=== PATIENT | male | born 1945 | race Caucasian/White ===

== ENCOUNTER 2019-10-21 22:14 | Inpatient (IN) ==
[2019-10-21] MEDS ORDERED: ZOFRAN INJ 4 MG VIAL IVP ONE (23:00)
[2019-10-21] MEDS ORDERED: MORPHINE SULFATE INJ 2 MG INJ ONE (23:00)
[2019-10-21] MEDS ORDERED: MORPHINE SULFATE INJ 2 MG INJ IVP ONE (23:00)
[2019-10-21] MEDS ORDERED: ZOFRAN INJ 4 MG VIAL ONE (23:00)
[2019-10-21 23:01] LABS: BASOPHILS % (AUTO) 0.3 % (0.2-1.0); EOSINOPHILS % (AUTO) 0.2 % (0.9-2.9); HEMATOCRIT 52.7 % (42.0-54.0); HEMOGLOBIN 17.7 g/dL (13.5-18.0); LYMPHOCYTES # (AUTO) 1.3 X10^3/uL (1.3-2.9); MEAN CORPUSCULAR HEMOGLOBIN 30.4 pg (27.0-34.0); MEAN CORPUSCULAR HGB CONC 33.5 g/dL (33.0-35.0); MEAN CORPUSCULAR VOLUME 90.9 fL (80.0-100.0); MEAN PLATELET VOLUME 9.6 fL (7.4-11.0); MONOCYTES # (AUTO) 0.6 x10^3/uL (0.3-0.8); MONOCYTES % (AUTO) 4.3 % (0.0-13.0); NEUTROPHILS # (AUTO) 12.2 x10^3/uL (2.2-4.8); NEUTROPHILS % (AUTO) 86.2 % (42.0-75.0); PLATELET COUNT 178 X10^3/uL (150.0-450.0); RED CELL DISTRIBUTION WIDTH 15.6 % (11.6-16.5); WHITE BLOOD COUNT 14.1 X10^3/uL (3.6-10.0)
[2019-10-21 23:15] LABS: ALANINE AMINOTRANSFERASE 38 Units/L (12-78); ALBUMIN 4.3 g/dL (3.4-5.0); ALKALINE PHOSPHATASE 60 Units/L (46-116); ASPARTATE AMINO TRANSFERASE 23 Units/L (15-37); BLOOD UREA NITROGEN 20 mg/dL (7-18); CALCIUM 9.4 mg/dL (8.5-10.1); CARBON DIOXIDE 28.8 mmol/L (21-32); CHLORIDE 101 mmol/L (98-107); COR NA(FOR HYPERGLY) 142 mmol/L (136-145); CREATININE 1.65 mg/dL (0.70-1.30); LIPASE 78 Units/L (73-393); SODIUM 141 mmol/L (136-145); eGFR NON BLACK RACES 44 (>60)
--- NOTE | 2019-10-21 23:32 | DR.ABDMALE ---
HPI Time seen Time Seen by Provider: 10/21/19 22:41 PCP Primary Care Physician: MEMO HPI comment HPI Comment: Pt. states 2 days of lower abdominal pain B/L Complaint Chief Complaint Doctors Comments: Neg V/D pos N Chief Complaint:: PT AMBULATORY IN ED WITH C/O ABD PAIN AND VOMITING SINCE YESTERDAY MORNING. Self Treatment fo Chief Complaint: ZOFRAN Reviewed Nurses Notes Review: Yes Mode of arrival Mode of Arrival: Ambulatory Timing Onset of Chief Complaint: 10/20/19 Duration How lon Duration: Days Location Location: RL and LLQ Severity Severity: Moderate Quality Quality: Colicky Modifying factors Worsening Factors: Nothing Improving Factors: Nothing Associated signs and symptoms Associated Signs and Symptoms: Nausea; denies Vomiting, Constipation and Hematuria PMH PMH Past Medical History: Yes Past Medical History: Anemia, Arthritis, Dyslipidemia, GERD and Hypertension Past Medical History Comment: BLADDER CA PROSTATE CA LBBB Past Surgical History: Yes Surgical History: Other Past Surgical History Comment: PROSTATE AND BLADDER REMOVED Family History History of Family Medical Conditions: Yes Family Medical History: Cancer Social History Does patient currently use any type of tobacco product: No Have you used tobacco products in the last 12 months: No Type of Tobacco Use: None Alcohol Use: None Do you use any recreational Drugs:: No Lives With: Family Lives Where: Home infectious screening In the last 2 months have you had wt loss of >10#?: NO Have you had fever, night sweats or hemotysis?: No Have you traveled outside the country in the last 6 months?: No Isolation: Standard ROS Review of Systems Constitutional: No Symptoms Reported Eyes: No Symptoms Reported ENTM: No Symptoms Reported Respiratoy: No Symptoms Reported Cardiovascular: No Symptoms Reported Gastrointestinal/Abdominal: Abdominal Pain and Nausea Genitourinary: No Symptoms Reported Neurological: No Symptoms Reported Musculoskeletal: No Symptoms Reported Integumentary: No Symptoms Reported Hematologic/Lymphatic: No Symptoms Reported Endocrine: No Symptoms Reported Psychiatric: No Symptoms Reported All Other Systems: Reviewed and Negative PE Vital Signs Vital Signs: Temp Pulse Resp BP BP Pulse Ox 10/22/19 00:49 18 10/21/19 23:12 20 10/21/19 22:19 96.0 F L 59 L 20 184/74 96 08/14/17 09:45 145/78 02/05/16 16:28 142/51 General Limitations: No Limitations General Appearance: Alert and In No Apparent Distress Head Head Exam: Normal Inspection Eyes Eye exam: Normal Appearance ENT ENT Exam: Normal Exam Neck Neck Exam: Normal Inspection Chest Chest Inspection: Normal Inspection Respiratory Respiratory Exam: Normal Lung Sounds Bilat Cardiovascular Cardiovascular Exam: Regular Rate and Normal Rhythm Abdominal Exam Abdominal Exam: Distention, Tenderness (LQ B/L), Guarding (voluntary) and Dimnished Bowel Sounds; negative Rebound and Ascites Abdominal Tenderness: RLQ, LLQ and Other (Urostomy bag) Rectal Rectal Exam: Deferred Back Back Exam: Normal Inspection Extremeties Extremities Exam: Normal Inspection Exam: Male: Deferred Neurologic Neurological Exam: Alert and Oriented X3 Psychiatric Psychiatric Exam: Normal Affect and Normal Mood Skin Skin Exam: Warm, Dry, Intact and Normal Color MDM Differential Diagnosis Differential Diagnosis: Appendicitis, Bowel Obstruction, Constipation, Diverticular disease, Inflammatory BD, Ischemic Bowel and Pancreatitis COURSE Consultation Called: 00:15 (00:20 Dr. Hernan harper) Call Returned: 00:18 Consultation Comments: Dr. Cat will consult [facility] Labs Reviewed Laboratory Results Reviewed?: Yes Result Diagrams: 10/21/19 22:51 10/21/19 22:51 Laboratory: WBC 14.1 X10^3/uL (3.6-10.0) H 10/21/19 22:51 RBC 5.80 X10^6/uL (4.7-6.0) 10/21/19 22:51 Hgb 17.7 g/dL (13.5-18.0) 10/21/19 22:51 Hct 52.7 % (42.0-54.0) 10/21/19 22:51 MCV 90.9 fL (80.0-100.0) 10/21/19 22:51 MCH 30.4 pg (27.0-34.0) 10/21/19 22:51 MCHC 33.5 g/dL (33.0-35.0) 10/21/19 22:51 RDW 15.6 % (11.6-16.5) 10/21/19 22:51 Plt Count 178 X10^3/uL (150.0-450.0) 10/21/19 22:51 MPV 9.6 fL (7.4-11.0) 10/21/19 22:51 Neut % (Auto) 86.2 % (42.0-75.0) H 10/21/19 22:51 Lymph % (Auto) 9.0 % (21.0-51.0) L 10/21/19 22:51 [place] % (Auto) 4.3 % (0.0-13.0) 10/21/19 22:51 Eos % (Auto) 0.2 % (0.9-2.9) L 10/21/19 22:51 Baso % (Auto) 0.3 % (0.2-1.0) 10/21/19 22:51 Neut # (Auto) 12.2 x10^3/uL (2.2-4.8) H 10/21/19 22:51 Lymph # (Auto) 1.3 X10^3/uL (1.3-2.9) 10/21/19 22:51 [place] # (Auto) 0.6 x10^3/uL (0.3-0.8) 10/21/19 22:51 Eos # (Auto) 0.0 x10^3/uL (0.0-0.2) 10/21/19 22:51 Baso # (Auto) 0.0 X10^3/uL (0.0-0.1) 10/21/19 22:51 Absolute Nucleated RBC 0.1 /100WBC 10/21/19 22:51 Sodium 141 mmol/L (136-145) 10/21/19 22:51 Corrected Sodium 142 mmol/L (136-145) 10/21/19 22:51 Potassium 4.6 mmol/L (3.5-5.1) 10/21/19 22:51 Chloride 101 mmol/L (98-107) 10/21/19 22:51 Carbon Dioxide 28.8 mmol/L (21-32) 10/21/19 22:51 BUN 20 mg/dL (7-18) H 10/21/19 22:51 Creatinine 1.65 mg/dL (0.70-1.30) H 10/21/19 22:51 Est GFR (MDRD) Af Amer 53 (>60) L 10/21/19 22:51 Est GFR (MDRD) Non-Af 44 (>60) L 10/21/19 22:51 Glucose 121 mg/dL (65-99) H 10/21/19 22:51 Calcium 9.4 mg/dL (8.5-10.1) 10/21/19 22:51 Corrected Calcium TNP 10/21/19 22:51 Total Bilirubin 0.80 mg/dL (0.2-1.0) 10/21/19 22:51 AST 23 Units/L (15-37) 10/21/19 22:51 ALT 38 Units/L (12-78) 10/21/19 22:51 Alkaline Phosphatase 60 Units/L (46-116) 10/21/19 22:51 Total Protein 8.0 g/dL (6.4-8.2) 10/21/19 22:51 Albumin 4.3 g/dL (3.4-5.0) 10/21/19 22:51 Globulin 3.7 g/dL (2.5-4.5) 10/21/19 22:51 Albumin/Globulin Ratio 1.2 Ratio (1.1-2.1) 10/21/19 22:51 Lipase 78 Units/L (73-393) 10/21/19 22:51 Other Results Comments: CT abdomen and pelvis without contrast Indication: Left lower quadrant pain with nausea vomiting. History of bladder cancer and prostate cancer TECHNIQUE Helical images through the abdomen and pelvis without contrast. Coronal and sagittal reformats provided. COMPARISON No recent similar prior FINDINGS Limited images through the lower chest shows scarring in the lung bases. There is prominent heart size and few coronary artery calcifications. Review of bone windows demonstrates no destructive osseous lesion. Abdomen: The liver, spleen, pancreas, adrenal glands, stomach and duodenum show no acute abnormality. Aortoiliac plaque noted. There is mild prominence to the bilateral renal collecting systems with left renal cyst noted. No stone is identified. Both ureters are mildly dilated, with right lower quadrant diverting ileal loop noted. Postsurgical change in the right lower quadrant noted with sutures. The colon and appendix are normal. There is dilated loops of ileum in the right lower quadrant, just proximal to the anastomosis which is seen on coronal image 19. Distal to this, the ileum is collapsed. Developing obstruction years presumed. Transition points probably on coronal image 34 in the right lower pelvis Gallbladder contains a single stone without wall thickening. Pelvis: Urinary bladder is absent. Prostate gland is absent. Rectum is normal IMPRESSION 1. Developing small bowel obstruction, with transition point in the right lower quadrant, near the anastomosis. Adhesions are most likely the cause 2. Post cystectomy change with diverting ileal loop noted. 3. Vascular plaque, spine DJD and other findings as above without other acute abnormality identified. Single gallstone seen in the gallbladder. Heart size is prominent. Electronically signed by: YOLANDA HOFFMAN (Oct 21, 2019 23:57:23) Opioid Opioid Risk Tool Age (Bra[place] box if 16-45): No History of Preadolescent Sexual Abuse: No Total: 0 Total Score Risk Category: Low Risk Copyright: Jean Carlos VALVERDE predicting aberrant behaviors Diagnosis Discharge Problem: Partial small bowel obstruction Cholelithiasis Qualifiers: Cholelithiasis location: gallbladder Cholecystitis presence: without cholecystitis Biliary obstruction: without biliary obstruction Qualified Code(s): K80.20 - Calculus of gallbladder without cholecystitis without obstruction
--- NOTE | 2019-10-21 23:59 | CT ---
CT abdomen and pelvis without contrastIndication: Left lower quadrant pain with nausea vomiting. History of bladder cancer and prostate cancerTECHNIQUEHelical images through the abdomen and pelvis without contrast. Coronal and sagittal reformats provided.COMPARISONNo recent similar priorFINDINGSLimited images through the lower chest shows scarring in the lung bases. There is prominent heart size and few coronary artery calcifications. Review of bone windows demonstrates no destructive osseous lesion.Abdomen: The liver, spleen, pancreas, adrenal glands, stomach and duodenum show no acute abnormality. Aortoiliac plaque noted. There is mild prominence to the bilateral renal collecting systems with left renal cyst noted. No stone is identified. Both ureters are mildly dilated, with right lower quadrant diverting ileal loop noted. Postsurgical change in the right lower quadrant noted with sutures. The colon and appendix are normal. There is dilated loops of ileum in the right lower quadrant, just proximal to the anastomosis which is seen on coronal image 19. Distal to this, the ileum is collapsed. Developing obstruction years presumed. Transition points probably on coronal image 34 in the right lower pelvisGallbladder contains a single stone without wall thickening.Pelvis: Urinary bladder is absent. Prostate gland is absent. Rectum is normalIMPRESSION1. Developing small bowel obstruction, with transition point in the right lower quadrant, near the anastomosis. Adhesions are most likely the cause2. Post cystectomy change with diverting ileal loop noted.3. Vascular plaque, spine DJD and other findings as above without other acute abnormality identified. Single gallstone seen in the gallbladder. Heart size is prominent.Electronically signed by: YOLANDA HOFFMAN (Oct 21, 2019 23:57:23)
[2019-10-22] MEDS ORDERED: MORPHINE SULFATE INJ 4 MG IVP ONE (00:34)
[2019-10-22] MEDS ORDERED: MORPHINE SULFATE INJ 4 MG ONE (00:39)
--- NOTE | 2019-10-22 02:27 | RAD ---
Abdomen radiographIndication: NG tube placementFINDINGSNG tube tip and side port projected over the stomach. There is no free air or pneumatosis. Moderate gas stool seen in the colon.Dilated loops of small bowel are seen the lower abdomen.IMPRESSIONNG tube projects as expected. Small-bowel obstruction likely persist.Electronically signed by: YOLANDA HOFFMAN (Oct 22, 2019 02:26:26)
[2019-10-22] MEDS ORDERED: LR 1000 ML IV 1,000 ML IV ONE (03:20)
[2019-10-22] MEDS ORDERED: LR 1000 ML IV 1,000 ML IV SCH (04:00)
[2019-10-22 04:14] VITALS: BMI 23.8
[2019-10-22] MEDS: LR 1000 ML IV 1,000 ML IV SCH (09:59)
[2019-10-22] MEDS: MORPHINE SULFATE INJ 4 MG IVP PRN ×2 (10:02→19:34)
[2019-10-22] MEDS ORDERED: CHLORASEPTIC SPRAY MT PRN (12:48)
[2019-10-22] MEDS: ZOFRAN INJ 4 MG VIAL IVP PRN (19:35)
[2019-10-23] MEDS: LR 1000 ML IV 1,000 ML IV SCH ×3 (02:06→18:14)
[2019-10-23 05:08] LABS: BASOPHILS % (AUTO) 0.3 % (0.2-1.0); HEMATOCRIT 44.3 % (42.0-54.0); LYMPHOCYTES # (AUTO) 0.7 X10^3/uL (1.3-2.9); LYMPHOCYTES % (AUTO) 14.7 % (21.0-51.0); MEAN CORPUSCULAR HEMOGLOBIN 30.8 pg (27.0-34.0); MEAN CORPUSCULAR HGB CONC 33.9 g/dL (33.0-35.0); MEAN CORPUSCULAR VOLUME 90.7 fL (80.0-100.0); MEAN PLATELET VOLUME 9.7 fL (7.4-11.0); MONOCYTES # (AUTO) 0.6 x10^3/uL (0.3-0.8); MONOCYTES % (AUTO) 11.9 % (0.0-13.0); NEUTROPHILS # (AUTO) 3.5 x10^3/uL (2.2-4.8); NEUTROPHILS % (AUTO) 72.1 % (42.0-75.0); PLATELET COUNT 132 X10^3/uL (150.0-450.0); RED BLOOD COUNT 4.88 X10^6/uL (4.7-6.0); RED CELL DISTRIBUTION WIDTH 16.1 % (11.6-16.5); WHITE BLOOD COUNT 4.9 X10^3/uL (3.6-10.0)
[2019-10-23 05:17] LABS: ALANINE AMINOTRANSFERASE 26 Units/L (12-78); ALBUMIN 3.2 g/dL (3.4-5.0); ALKALINE PHOSPHATASE 44 Units/L (46-116); ASPARTATE AMINO TRANSFERASE 15 Units/L (15-37); BLOOD UREA NITROGEN 19 mg/dL (7-18); CALCIUM 8.4 mg/dL (8.5-10.1); CARBON DIOXIDE 30.1 mmol/L (21-32); CHLORIDE 104 mmol/L (98-107); CREATININE 1.39 mg/dL (0.70-1.30); SODIUM 140 mmol/L (136-145); TOTAL PROTEIN 6.2 g/dL (6.4-8.2); eGFR NON BLACK RACES 54 (>60)
[2019-10-23] MEDS: MORPHINE SULFATE INJ 4 MG IVP PRN ×3 (05:55→20:20)
--- NOTE | 2019-10-23 06:19 | RAD ---
HISTORYSmall bowel obstructionSTUDYACUTE ABDOMEN [id number]/24/[address] abdomen pelvisFINDINGSThe heart is enlarged. The lung garcía are clear. There is a nasogastric tube with its tip and side hole within the stomach. The abdominal gas pattern is non specific and nonobstructive. However it should be noted that the dilated small bowel loops noted on the recent CT are fluid-filled would not necessarily be visualized on plain film. No abnormal masses or abnormal calcifications are identified. Surgical clips are present within the pelvis.IMPRESSIONNonspecific bowel gas pattern. See discussion aboveCardiomegaly without congestive heart failureLungs clearElectronically signed by: DAYSI LEMUS (Oct 23, 2019 06:18:22)
[2019-10-23] MEDS: PROTONIX INJ 40 MG VIAL IVP SCH (08:07)
--- NOTE | 2019-10-23 09:31 | DR.PROGNOT ---
Hospital Progress Notes - Progress Note for Day of: Progress Note Date: 10/23/19 - Chief Complaint Chief Complaint: no abdominal pain , no nausea or vomiting . passing flatus , no BM. abdominal xray showed resolved SBO . afebrile .. - Past Medical Family Social History Past Med/Fam/Surg Hx: No changes since H&P Allergies: Allergies No Known Drug Allergies Allergy (Verified 08/14/17 09:51) - Review Of Systems ROS: No change since H&P - Vital Signs Vital Signs: Temperature 97.9 F Pulse Rate [Apical] 60 Pulse Rate 59 Respiratory Rate 20 Blood Pressure [Left Arm] 167/70 Blood Pressure [Right Arm] 185/76 Blood Pressure 184/74 O2 Sat by Pulse Oximetry 91 - Physical Exam Oriented: Normal Eyes: Normal Ear: Normal Nose: Normal Throat: Normal Respiratory: Normal Cardiovascular: Normal : Other (has urostomy .) GI:Palpation: Normal GI: Tenderness: Mild (mild periumbilical tenderness , no rebound , BS+) Speech Pattern: Clear, Appropriate - Laboratory and Diagnostics Result Diagrams: 10/23/19 04:17 10/23/19 04:17 Labs: Laboratory WBC 4.9 X10^3/uL (3.6-10.0) D 10/23/19 04:17 RBC 4.88 X10^6/uL (4.7-6.0) 10/23/19 04:17 Hgb 15.0 g/dL (13.5-18.0) D 10/23/19 04:17 Hct 44.3 % (42.0-54.0) 10/23/19 04:17 MCV 90.7 fL (80.0-100.0) 10/23/19 04:17 MCH 30.8 pg (27.0-34.0) 10/23/19 04:17 MCHC 33.9 g/dL (33.0-35.0) 10/23/19 04:17 RDW 16.1 % (11.6-16.5) 10/23/19 04:17 Plt Count 132 X10^3/uL (150.0-450.0) L 10/23/19 04:17 MPV 9.7 fL (7.4-11.0) 10/23/19 04:17 Neut % (Auto) 72.1 % (42.0-75.0) 10/23/19 04:17 Lymph % (Auto) 14.7 % (21.0-51.0) L 10/23/19 04:17 [place] % (Auto) 11.9 % (0.0-13.0) 10/23/19 04:17 Eos % (Auto) 1.0 % (0.9-2.9) 10/23/19 04:17 Baso % (Auto) 0.3 % (0.2-1.0) 10/23/19 04:17 Neut # (Auto) 3.5 x10^3/uL (2.2-4.8) 10/23/19 04:17 Lymph # (Auto) 0.7 X10^3/uL (1.3-2.9) L 10/23/19 04:17 [place] # (Auto) 0.6 x10^3/uL (0.3-0.8) 10/23/19 04:17 Eos # (Auto) 0.0 x10^3/uL (0.0-0.2) 10/23/19 04:17 Baso # (Auto) 0.0 X10^3/uL (0.0-0.1) 10/23/19 04:17 Absolute Nucleated RBC 0.1 /100WBC 10/23/19 04:17 Sodium 140 mmol/L (136-145) 10/23/19 04:17 Corrected Sodium TNP 10/23/19 04:17 Potassium 4.2 mmol/L (3.5-5.1) 10/23/19 04:17 Chloride 104 mmol/L (98-107) 10/23/19 04:17 Carbon Dioxide 30.1 mmol/L (21-32) 10/23/19 04:17 BUN 19 mg/dL (7-18) H 10/23/19 04:17 Creatinine 1.39 mg/dL (0.70-1.30) H 10/23/19 04:17 Est GFR (MDRD) Af Amer > 60 (>60) 10/23/19 04:17 Est GFR (MDRD) Non-Af 54 (>60) L 10/23/19 04:17 Glucose 87 mg/dL (65-99) 10/23/19 04:17 Calcium 8.4 mg/dL (8.5-10.1) L 10/23/19 04:17 Corrected Calcium 9.0 mg/dL (8.5-10.1) 10/23/19 04:17 Total Bilirubin 0.70 mg/dL (0.2-1.0) 10/23/19 04:17 AST 15 Units/L (15-37) 10/23/19 04:17 ALT 26 Units/L (12-78) 10/23/19 04:17 Alkaline Phosphatase 44 Units/L (46-116) L 10/23/19 04:17 Total Protein 6.2 g/dL (6.4-8.2) L 10/23/19 04:17 Albumin 3.2 g/dL (3.4-5.0) L 10/23/19 04:17 Globulin 3.0 g/dL (2.5-4.5) 10/23/19 04:17 Albumin/Globulin Ratio 1.1 Ratio (1.1-2.1) 10/23/19 04:17 Lipase 78 Units/L (73-393) 10/21/19 22:51 - Assessment and Plan 1: resolving partial SBO . abdominal adhesions. h/o bladder and prostate ca . will D/C NGT and start clar liquid . - Problem Patient Problems: Patient Problems Partial small bowel obstruction (Acute) K56.600 Cholelithiasis (Acute) K80.20
[2019-10-23] MEDS ORDERED: AMBIEN PO PRN (09:43)
[2019-10-23] MEDS: ZOFRAN INJ 4 MG VIAL IVP PRN (20:20)
[2019-10-24] MEDS: LR 1000 ML IV 1,000 ML IV SCH ×2 (00:44→09:55)
--- NOTE | 2019-10-24 07:13 | RAD ---
HISTORYSmall-bowel [id number]/25/2020FINDINGSNasogastric tube is no longer present. The abdominal gas pattern is nonspecific and nonobstructive. No abnormal masses or abnormal calcifications are identifi ed. Regional skeleton is intact. Multiple surgical clips are present within the pelvis.IMPRESSIONUnre markable KUBElectronically signed by: DAYSI LEMUS (Oct 24, 2019 07:11:54)
[2019-10-24] MEDS: PROTONIX INJ 40 MG VIAL IVP SCH (08:20)
--- NOTE | 2019-10-24 10:43 | DR.PROGNOT ---
Hospital Progress Notes - Progress Note for Day of: Progress Note Date: 10/24/19 - Chief Complaint Chief Complaint: no abdominal pain , no nausea or vomiting . passing flatus , no BM. abdominal xray showed resolved SBO . afebrile .. - Past Medical Family Social History Past Med/Fam/Surg Hx: No changes since H&P Allergies: Allergies No Known Drug Allergies Allergy (Verified 08/14/17 09:51) - Review Of Systems ROS: No change since H&P - Vital Signs Vital Signs: Temperature 98.2 F Pulse Rate [Apical] 66 Pulse Rate 59 Respiratory Rate 18 Blood Pressure [Left Arm] 146/65 Blood Pressure [Right Arm] 185/76 Blood Pressure 184/74 O2 Sat by Pulse Oximetry 95 - Physical Exam Oriented: Normal Eyes: Normal Ear: Normal Nose: Normal Throat: Normal Respiratory: Normal Cardiovascular: Normal : Other (has urostomy .) GI:Palpation: Normal GI: Tenderness: Mild (mild periumbilical tenderness , no rebound , BS+) Speech Pattern: Clear, Appropriate - Laboratory and Diagnostics Result Diagrams: 10/23/19 04:17 10/23/19 04:17 Labs: Laboratory WBC 4.9 X10^3/uL (3.6-10.0) D 10/23/19 04:17 RBC 4.88 X10^6/uL (4.7-6.0) 10/23/19 04:17 Hgb 15.0 g/dL (13.5-18.0) D 10/23/19 04:17 Hct 44.3 % (42.0-54.0) 10/23/19 04:17 MCV 90.7 fL (80.0-100.0) 10/23/19 04:17 MCH 30.8 pg (27.0-34.0) 10/23/19 04:17 MCHC 33.9 g/dL (33.0-35.0) 10/23/19 04:17 RDW 16.1 % (11.6-16.5) 10/23/19 04:17 Plt Count 132 X10^3/uL (150.0-450.0) L 10/23/19 04:17 MPV 9.7 fL (7.4-11.0) 10/23/19 04:17 Neut % (Auto) 72.1 % (42.0-75.0) 10/23/19 04:17 Lymph % (Auto) 14.7 % (21.0-51.0) L 10/23/19 04:17 [place] % (Auto) 11.9 % (0.0-13.0) 10/23/19 04:17 Eos % (Auto) 1.0 % (0.9-2.9) 10/23/19 04:17 Baso % (Auto) 0.3 % (0.2-1.0) 10/23/19 04:17 Neut # (Auto) 3.5 x10^3/uL (2.2-4.8) 10/23/19 04:17 Lymph # (Auto) 0.7 X10^3/uL (1.3-2.9) L 10/23/19 04:17 [place] # (Auto) 0.6 x10^3/uL (0.3-0.8) 10/23/19 04:17 Eos # (Auto) 0.0 x10^3/uL (0.0-0.2) 10/23/19 04:17 Baso # (Auto) 0.0 X10^3/uL (0.0-0.1) 10/23/19 04:17 Absolute Nucleated RBC 0.1 /100WBC 10/23/19 04:17 Sodium 140 mmol/L (136-145) 10/23/19 04:17 Corrected Sodium TNP 10/23/19 04:17 Potassium 4.2 mmol/L (3.5-5.1) 10/23/19 04:17 Chloride 104 mmol/L (98-107) 10/23/19 04:17 Carbon Dioxide 30.1 mmol/L (21-32) 10/23/19 04:17 BUN 19 mg/dL (7-18) H 10/23/19 04:17 Creatinine 1.39 mg/dL (0.70-1.30) H 10/23/19 04:17 Est GFR (MDRD) Af Amer > 60 (>60) 10/23/19 04:17 Est GFR (MDRD) Non-Af 54 (>60) L 10/23/19 04:17 Glucose 87 mg/dL (65-99) 10/23/19 04:17 Calcium 8.4 mg/dL (8.5-10.1) L 10/23/19 04:17 Corrected Calcium 9.0 mg/dL (8.5-10.1) 10/23/19 04:17 Total Bilirubin 0.70 mg/dL (0.2-1.0) 10/23/19 04:17 AST 15 Units/L (15-37) 10/23/19 04:17 ALT 26 Units/L (12-78) 10/23/19 04:17 Alkaline Phosphatase 44 Units/L (46-116) L 10/23/19 04:17 Total Protein 6.2 g/dL (6.4-8.2) L 10/23/19 04:17 Albumin 3.2 g/dL (3.4-5.0) L 10/23/19 04:17 Globulin 3.0 g/dL (2.5-4.5) 10/23/19 04:17 Albumin/Globulin Ratio 1.1 Ratio (1.1-2.1) 10/23/19 04:17 Lipase 78 Units/L (73-393) 10/21/19 22:51 - Assessment and Plan 1: resolving partial SBO . abdominal adhesions. h/o bladder and prostate ca . will advance diet and follow as out Pt - Problem Patient Problems: Patient Problems Partial small bowel obstruction (Acute) K56.600 Cholelithiasis (Acute) K80.20
[2019-10-24 12:53] VITALS: BP 179/71
== END 2019-10-24 11:50 | disposition home or self-care (01) | DRG 390 ==
LOC: ER 22:17 → MED/SURG 10-22 00:50
PROVIDERS: ADMIT Obstetrics & Gynecology Obstetrics; ATTEND Obstetrics & Gynecology Obstetrics
DX: R10.30 Lower abdominal pain, unspecified; K56.600 Partial intestinal obstruction, unspecified as to cause; K80.20 Calculus of gallbladder without cholecystitis without obstruction; Z90.6 Acquired absence of other parts of urinary tract; D72.828 Other elevated white blood cell count; R94.4 Abnormal results of kidney function studies; R11.2 Nausea with vomiting, unspecified; E78.49 Other hyperlipidemia; K21.9 Gastro-esophageal reflux disease without esophagitis; I10 Essential (primary) hypertension; Z90.79 Acquired absence of other genital organ(s)
CPT/HCPCS: 36415; 74000; 74018; 74022; 74176; 80053; 83690; 85025; 96365; 96374; 96375; 99284; A4216; A4222; C9113; J2270; J2405; J7120